=== PATIENT | female | born 1950 | race Caucasian/White ===

== ENCOUNTER 2018-07-22 12:51 | Emergency (ER) | payer MEDICARE, OTHER ==
[~2018-07-22] VITALS: Ht 167.6 cm; Wt 47.2 kg
--- NOTE | 2018-07-22 13:05 | NUR ---
THIS RN ASSISTED PT OUT OF HER TRUCK FROM [place]. PT TOLD THIS RN SHE WAS FEELING WEAK. WHEN ATTEMPT TO HELP PT OUT OF TRUCK, PT STATES THIS RN SHOULD BE CAREFUL WHEN TOUCHING HER. PT STATES THAT SHE DRINKS A VERY POWERFUL HOLY WATER FROM ANOTHER COUNTRY THAT COULD EFFECT THIS RN. PT GATHERED BELOGNINGS AND WATER FROM TRUCK AND ASSISTED INTO WHEELCHAIR. WHEN ATTEMPTING TO GO [facility] TO [facility], PT STATES SHE NEEDED TO RETURN BACK TO HER TRUCK TO GATHER MORE WATER. PT GOT BACK INTO TRUCK AND POURED LIQUID FROM ONE CONTAINER INTO ANOTHER AND RETURNED TO WHEELCHAIR AND CAME BACK INTO HOSPITAL. PT TOLD THIS RN THAT THE LORD TALKS TO HER AND SHE DOES HIS WORK.
[2018-07-22] MEDS ORDERED: NS IV 1000 ML 1,000 ML IV SCH (13:15)
--- NOTE | 2018-07-22 13:21 | ED General ---
General Stated Complaint: N/V Source of Information: Patient Exam Limitations: No Limitations History of Present Illness Date Seen by Provider: July 22, 2018 Time Seen by Provider: 13:17 Initial Comments To ER by private vehicle with reports of general weakness nausea and vomiting. His began earlier today. She states that in May of this year she left her home town of [place] in route to [place] to "do the Lords work" but cannot elaborate on what that is. She states that 2 weeks ago she was in [place] for one week in "a mental institution". She states that she's not been taking the prescribed medications since discharge 1 week ago because "it's not the Lords will". 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 She states that the Lord always provides for her, however she's been without food for 8 days. She denies any specific pains. Denies any shortness of breath. She states that she does not want to go back to a mental institution "unless the Lord wants her to". She brings with her a 1 gallon jug of water which she states is "holy water". She is neither suicidal nor homicidal. Timing/Duration: 1-2 Days Severity: Moderate Associated Systoms: Nausea/Vomiting Allergies and Home Medications Allergies Coded Allergies: No Known Drug Allergies (Unverified , 07/22/18) Patient Home Medication List Home Medication List Reviewed: Yes Review of Systems Review of Systems Constitutional: see HPI, weakness EENTM: see HPI Respiratory: no symptoms reported Cardiovascular: no symptoms reported Genitourinary: no symptoms reported Musculoskeletal: no symptoms reported Skin: no symptoms reported Psychiatric/Neurological: No Symptoms Reported Hematologic/Lymphatic: No Symptoms Reported Physical Exam Vital Signs Vital Signs - First Documented 07/22/18 13:05 Temp 97.4 Pulse 68 Resp 19 B/P (MAP) 130/72 (91) Pulse Ox 96 O2 Delivery Room Air Capillary Refill : Height, Weight, BMI Height: '" Weight: lbs. oz. kg; BMI Method: General Appearance: No Apparent Distress, WD/WN, Thin (frail) Eyes: Bilateral Eye Normal Inspection, Bilateral Eye PERRL, Bilateral Eye EOMI HEENT: PERRL/EOMI, TMs Normal Neck: Full Range of Motion, Normal Inspection Respiratory: No Accessory Muscle Use, No Respiratory Distress Gastrointestinal: Non Tender, Soft Extremity: Normal Capillary Refill, Normal Inspection Neurologic/Psychiatric: Alert, Oriented x3, Other (alert oriented cooperative. Keeps eyes closed when talking to me. Does not appear to have any hallucinations at this time. Believe she does have a baseline dementia.) Skin: Normal Color, Warm/Dry Comments Stated to RN that she can only eat white food because of the vibrations in other colored foods Progress/Results/Core Measures Suspected Sepsis SIRS Temperature: Pulse: Respiratory Rate: Laboratory Tests 07/22/18 13:11: White Blood Count 6.8 Blood Pressure / Mean: Laboratory Tests 07/22/18 13:11: Creatinine 0.82, Platelet Count 374, Total Bilirubin 0.6 Results/Orders Lab Results Laboratory Tests Test 07/22/18 13:11 07/22/18 14:47 Range/Units White Blood Count 6.8 4.3-11.0 10^3/uL Red Blood Count 4.02 L 4.35-5.85 10^6/uL Hemoglobin 11.4 L 11.5-16.0 G/DL Hematocrit 35 35-52 % Mean Corpuscular Volume 87 80-99 FL Mean Corpuscular Hemoglobin 28 25-34 PG Mean Corpuscular Hemoglobin Concent 33 32-36 G/DL Red Cell Distribution Width 15.9 H 10.0-14.5 % Platelet Count 374 130-400 10^3/uL Mean Platelet Volume 8.8 7.4-10.4 FL Neutrophils (%) (Auto) 82 H 42-75 % Lymphocytes (%) (Auto) 11 L 12-44 % Monocytes (%) (Auto) 7 0-12 % Eosinophils (%) (Auto) 0 0-10 % Basophils (%) (Auto) 0 0-10 % Neutrophils # (Auto) 5.6 1.8-7.8 X 10^3 Lymphocytes # (Auto) 0.8 L 1.0-4.0 X 10^3 Monocytes # (Auto) 0.5 0.0-1.0 X 10^3 Eosinophils # (Auto) 0.0 0.0-0.3 10^3/uL Basophils # (Auto) 0.0 0.0-0.1 10^3/uL Sodium Level 130 L 135-145 MMOL/L Potassium Level 4.1 3.6-5.0 MMOL/L Chloride Level 95 L 98-107 MMOL/L Carbon Dioxide Level 22 21-32 MMOL/L Anion Gap 13 5-14 MMOL/L Blood Urea Nitrogen 13 7-18 MG/DL Creatinine 0.82 0.60-1.30 MG/DL Estimat Glomerular Filtration Rate > 60 BUN/Creatinine Ratio 16 Glucose Level 115 H 70-105 MG/DL Calcium Level 9.5 8.5-10.1 MG/DL Corrected Calcium 9.3 8.5-10.1 MG/DL Magnesium Level 2.0 1.8-2.4 MG/DL Total Bilirubin 0.6 0.1-1.0 MG/DL Aspartate Amino Transf (AST/SGOT) 27 5-34 U/L Alanine Aminotransferase (ALT/SGPT) 35 0-55 U/L Alkaline Phosphatase 67 40-136 U/L Total Protein 7.5 6.4-8.2 GM/DL Albumin 4.3 3.2-4.5 GM/DL Thyroid Stimulating Hormone (TSH) 0.71 0.35-4.94 UIU/ML Free Thyroxine 1.17 0.70-1.48 NG/DL Salicylates Level < 5.0 L 5.0-20.0 MG/DL Acetaminophen Level < 10 L 10-30 UG/ML Serum Alcohol < 10 <10 MG/DL Urine Color YELLOW Urine Clarity CLEAR Urine pH 6 5-9 Urine Specific Fif[place] 1.015 L 1.016-1.022 Urine Protein NEGATIVE NEGATIVE Urine Glucose (UA) NEGATIVE NEGATIVE Urine Ketones 3+ H NEGATIVE Urine Nitrite NEGATIVE NEGATIVE Urine Bilirubin NEGATIVE NEGATIVE Urine Urobilinogen NORMAL NORMAL MG/DL Urine Leukocyte Esterase NEGATIVE NEGATIVE Urine RBC (Auto) 1+ H NEGATIVE Urine RBC NONE /HPF Urine WBC NONE /HPF Urine Squamous Epithelial Cells RARE /HPF Urine Crystals NONE /LPF Urine Bacteria NEGATIVE /HPF Urine Casts NONE /LPF Urine Mucus NEGATIVE /LPF Urine Culture Indicated NO Urine Opiates Screen NEGATIVE NEGATIVE Urine Oxycodone Screen NEGATIVE NEGATIVE Urine Methadone Screen NEGATIVE NEGATIVE Urine Propoxyphene Screen NEGATIVE NEGATIVE Urine Barbiturates Screen NEGATIVE NEGATIVE Ur Tricyclic Antidepressants Screen NEGATIVE NEGATIVE Urine Phencyclidine Screen NEGATIVE NEGATIVE Urine Amphetamines Screen NEGATIVE NEGATIVE Urine Methamphetamines Screen NEGATIVE NEGATIVE Urine Benzodiazepines Screen NEGATIVE NEGATIVE Urine Cocaine Screen NEGATIVE NEGATIVE Urine Cannabinoids Screen NEGATIVE NEGATIVE My Orders Orders - JEOVANY ALVES [employer]TELLIGENCE DEVELOPER Cbc With Automated Diff (07/22/18 13:14) Comprehensive Metabolic Panel (07/22/18 13:14) Syphilis Antibody Screen (07/22/18 13:14) Ua Culture If Indicated (07/22/18 13:14) Drug Screen Stat (Urine) (07/22/18 13:14) Ekg Tracing (07/22/18 13:14) Alcohol (07/22/18 13:14) Salicylate (07/22/18 13:14) Acetaminophen (07/22/18 13:14) Ed Iv/Invasive Line Start (07/22/18 13:14) Magnesium (07/22/18 13:14) Ns Iv 1000 Ml (Sodium Chloride 0.9%) (07/22/18 13:15) General/Regular (07/22/18 Lunch) Thyroid Stimulating Hormone (07/22/18 13:23) Free T4 (Free Thyroxine) (07/22/18 13:23) Vital Signs/I&O 07/22/18 13:05 Temp 97.4 Pulse 68 Resp 19 B/P (MAP) 130/72 (91) Pulse Ox 96 O2 Delivery Room Air Capillary Refill : Departure Communication (Admissions) 1340-spoke with [facility] [place]. Since the patient states that she would only go inpatient if it is the Lords Will, [place] [place] may not be the best place since we cannot force her involuntarily to admit her. They recommended we speak with [facility] in regards to possible involuntary placement at state facility. I'm also speaking with [place] [employer] to determine if she is a missing person, they state that no missing person report has been filed for this name/date of . 1419-Aaron Gloria here from [facility] here to evaluate pt. Dr holden has also seen the patient and agrees with plan of care. 1615-Aaron gloria has interviewed the patient and not found sufficient reason to involuntarily admit her to [facility]. Patient still states that she would be agreeable to go to [facility] unit if it is the Lords wish. I spoke with Emily Randhawa, she'll be out to evaluate the patient for possible placement there. 1844-Emily Randhawa here has screened patient. She feels the patient would qualify for admission at [facility] unit and the patient herself has signed agreeable to voluntary admission. I updated Dr. Steiner and she accepts the patient. We'll transport her over there using tracing normal secure psych transport. Impression Primary Impression: Delusional disorder Disposition: 01 HOME, SELF-CARE Condition: Stable JEOVANY ALVES APRN July 22, 2018 13:21
[2018-07-22 13:22] LABS: BASOPHILS % (AUTO) 0 % (0-10); EOSINOPHILS % (AUTO) 0 % (0-10); HEMATOCRIT 35 % (35-52); HEMOGLOBIN 11.4 G/DL (11.5-16.0); LYMPHOCYTES # (AUTO) 0.8 X 10^3 (1.0-4.0); LYMPHOCYTES % (AUTO) 11 % (12-44); MEAN CORPUSCULAR HEMOGLOBIN 28 PG (25-34); MEAN CORPUSCULAR HGB CONC 33 G/DL (32-36); MEAN CORPUSCULAR VOLUME 87 FL (80-99); MEAN PLATELET VOLUME 8.8 FL (7.4-10.4); MONOCYTES # (AUTO) 0.5 X 10^3 (0.0-1.0); MONOCYTES % (AUTO) 7 % (0-12); NEUTROPHILS # (AUTO) 5.6 X 10^3 (1.8-7.8); NEUTROPHILS % (AUTO) 82 % (42-75); PLATELET COUNT 374 10^3/uL (130-400); RED CELL DISTRIBUTION WIDTH 15.9 % (10.0-14.5); WHITE BLOOD COUNT 6.8 10^3/uL (4.3-11.0)
[2018-07-22 13:39] LABS: ALANINE AMINOTRANSFERASE 35 U/L (0-55); ALBUMIN 4.3 GM/DL (3.2-4.5); ALKALINE PHOSPHATASE 67 U/L (40-136); BILIRUBIN,TOTAL 0.6 MG/DL (0.1-1.0); BUN/CREATININE RATIO 16; CALCIUM 9.5 MG/DL (8.5-10.1); CARBON DIOXIDE 22 MMOL/L (21-32); CHLORIDE 95 MMOL/L (98-107); CREATININE SERUM 0.82 MG/DL (0.60-1.30); GFR ESTIMATED > 60; GLUCOSE 115 MG/DL (70-105); POTASSIUM 4.1 MMOL/L (3.6-5.0); SALICYLATE < 5.0 MG/DL (5.0-20.0); SODIUM 130 MMOL/L (135-145); TOTAL PROTEIN 7.5 GM/DL (6.4-8.2)
[2018-07-22 13:46] LABS: ACETAMINOPHEN < 10 UG/ML (10-30)
[2018-07-22 14:17] LABS: FREE T4 (FREE THYROXINE) 1.17 NG/DL (0.70-1.48)
--- NOTE | 2018-07-22 14:39 | NUR ---
Family Services Worker Referral: Upon entering the room, pt was ordering a vegetarian meal consisting of 'white (colored) foods.' Pt said she did not want to be touched, stating she drinks holy water every day and this can have adverse effects on others who touch her. Pt had a gallon of water with her, which she said was holy water. Pt permitted certain nurses to physically tend to her needs. She shared that she lives in [facility] in the winter and has been traveling from there since May. She said she goes wherever God tells her to go, that she can hear him talking to her all the time. Pt also said she sees and hears her grandparents and other family members. Pt said God told her to go to the hospital today, which shocked her since she 'relies upon God and does go to hospitals.' She shared about being in a behavioral health unit recently, but did not give the location or name. She described involuntary admission. In our visit she asked if I could tell the person who ordered her food that 'God wanted her to have some meat, like turkey and cheese.'
[2018-07-22 14:55] LABS: BILIRUBIN,URINE NEGATIVE (NEGATIVE); CLARITY,URINE CLEAR; COLOR,URINE YELLOW; GLUCOSE, URINE (UA) NEGATIVE (NEGATIVE); KETONES,URINE 3+ (NEGATIVE); LEUKOCYTE ESTERASE ,URINE NEGATIVE (NEGATIVE); NITRITE,URINE NEGATIVE (NEGATIVE); PH,URINE 6 (5-9); PROTEIN,URINE NEGATIVE (NEGATIVE); UROBILINOGEN,URINE NORMAL (NORMAL)
[2018-07-22 15:07] LABS: AMPHETAMINE SCREEN, URINE NEGATIVE (NEGATIVE); BARBITURATE SCREEN URINE NEGATIVE (NEGATIVE); BENZODIAZEPINES SCREEN URINE NEGATIVE (NEGATIVE); CANNABINOID SCREEN, URINE NEGATIVE (NEGATIVE); COCAINE SCREEN URINE NEGATIVE (NEGATIVE); METHADONE STAT NEGATIVE (NEGATIVE); METHAMPHETAMINE SCREEN URINE S NEGATIVE (NEGATIVE); OPIATE SCREEN URINE NEGATIVE (NEGATIVE); OXYCODONE STAT NEGATIVE (NEGATIVE); PROPOXYPHENE STAT NEGATIVE (NEGATIVE); TRICYCLIC ANTIDEPRESSANTS SCRE NEGATIVE (NEGATIVE)
[2018-07-22 15:25] LABS: BACTERIA,URINE NEGATIVE /HPF; SQUAMOUS EPITHELIAL CELL,UR RARE /HPF
[2018-07-22] MEDS ORDERED: LORazepam INJ 2 MG/ML (ATIVAN) VIAL IVP PRN (19:00)
[2018-07-22 19:35] VITALS: BP 104/57
== END 2018-07-22 19:35 ==
LOC: ER 12:54
DX: F22 Delusional disorders (principal)
CPT/HCPCS: 36415; 80053; 80306; 80320; 80329; 81000; 83735; 84439; 84443; 85025; 86780; 93005; 96361; 96374

== ENCOUNTER 2018-08-18 21:48 | Emergency (ER) | payer MEDICARE ==
[~2018-08-18] VITALS: Ht 167.6 cm; Wt 59.0 kg
[2018-08-18] MEDS ORDERED: LACTATED RINGERS 1,000 ML IV ONE (21:50)
--- OUTSIDE RECORDS SUMMARY | 2018-08-18 21:52 | XMS REPORT | Continuity of Care Document ---
Author Organization Unknown Address Unknown Allergies Active Description Code Type Severity Reaction Onset Reported/Identified Relationship to Patient Clinical Status Yes No Known Drug Allergies [id number] Drug Allergy Unknown N/A 07/22/2018 Medications There is no data. Problems Date Dx Coded Attending Type Code Diagnosis Diagnosed By 07/24/2018 JEOVANY ALVES APRN Ot F22 DELUSIONAL DISORDERS 07/24/2018 JEOVANY ALVES APRN Ot R53.1 WEAKNESS Procedures There is no data. Results Test Result Range Complete blood count (CBC) with automated white blood cell (WBC) differential - 07/22/18 13:11 Blood leukocytes automated count (number/volume) 6.8 10*3/uL 4.3-11.0 Blood erythrocytes automated count (number/volume) 4.02 10*6/uL 4.35-5.85 Venous blood hemoglobin measurement (mass/volume) 11.4 g/dL 11.5-16.0 Blood hematocrit (volume fraction) 35 % 35-52 Automated erythrocyte mean corpuscular volume 87 [foz_us] 80-99 Automated erythrocyte mean corpuscular hemoglobin (mass per erythrocyte) 28 pg 25-34 Automated erythrocyte mean corpuscular hemoglobin concentration measurement (mass/volume) 33 g/dL 32-36 Automated erythrocyte distribution width ratio 15.9 % 10.0- 14.5 Automated blood platelet count (count/volume) 374 10*3/uL 130-400 Automated blood platelet mean volume measurement 8.8 [foz_us] 7.4-10.4 Automated blood neutrophils/100 leukocytes 82 % 42-75 Automated blood lymphocytes/100 leukocytes 11 % 12-44 Blood monocytes/100 leukocytes 7 % 0-12 Automated blood eosinophils/100 leukocytes 0 % 0-10 Automated blood basophils/100 leukocytes 0 % 0-10 Blood neutrophils automated count (number/volume) 5.6 10*3 1.8-7.8 Blood lymphocytes automated count (number/volume) 0.8 10*3 1.0-4.0 Blood monocytes automated count (number/volume) 0.5 10*3 0.0- 1.0 Automated eosinophil count 0.0 10*3/uL 0.0-0.3 Automated blood basophil count (count/volume) 0.0 10*3/uL 0.0-0.1 Comprehensive metabolic panel - 07/22/18 13:11 Serum or plasma sodium measurement (moles/volume) 130 mmol/L 135-145 Serum or plasma potassium measurement (moles/volume) 4.1 mmol/L 3.6-5.0 Serum or plasma chloride measurement (moles/volume) 95 mmol/L 98-107 Carbon dioxide 22 mmol/L 21-32 Serum or plasma anion gap determination (moles/volume) 13 mmol/L 5-14 Serum or plasma urea nitrogen measurement (mass/volume) 13 mg/dL 7-18 Serum or plasma creatinine measurement (mass/volume) 0.82 mg/dL 0.60-1.30 Serum or plasma urea nitrogen/creatinine mass ratio 16 NRG Serum or plasma creatinine measurement with calculation of estimated glomerular filtration rate > NRG Serum or plasma glucose measurement (mass/volume) 115 mg/dL 70-105 Serum or plasma calcium measurement (mass/volume) 9.5 mg/dL 8.5-10.1 Serum or plasma total bilirubin measurement (mass/volume) 0.6 mg/dL 0.1-1.0 Serum or plasma alkaline phosphatase measurement (enzymatic activity/volume) 67 U/L 40-136 Serum or plasma aspartate aminotransferase measurement (enzymatic activity/volume) 27 U/L 5-34 Serum or plasma alanine aminotransferase measurement (enzymatic activity/volume) 35 U/L 0-55 Serum or plasma protein measurement (mass/volume) 7.5 g/dL 6.4-8.2 Serum or plasma albumin measurement (mass/volume) 4.3 g/dL 3.2-4.5 CALCIUM CORRECTED 9.3 mg/dL 8.5-10.1 Magnesium - 07/22/18 13:11 Magnesium 2.0 mg/dL 1.8-2.4 Serum or plasma salicylates measurement (mass/volume) - 07/22/18 13:11 Serum or plasma salicylates measurement (mass/volume) < mg/dL 5.0-20.0 Serum or plasma acetaminophen measurement (mass/volume) - 07/22/18 13:11 Serum or plasma acetaminophen measurement (mass/volume) < ug/mL 10-30 Serum or plasma ethanol measurement (mass/volume) - 07/22/18 13:11 Serum or plasma ethanol measurement (mass/volume) < mg/dL <10 THYROID STIMULATING HORMONE - 07/22/18 13:11 THYROID STIMULATING HORMONE 0.71 u[iU]/mL 0.35-4.94 Serum or plasma thyroxine (T4) free measurement (mass/volume) - 07/22/18 13:11 Serum or plasma thyroxine (T4) free measurement (mass/volume) 1.17 ng/dL 0.70-1.48 Serum reagin antibody assay (units/volume) by RPR - 07/22/18 13:11 Serum reagin antibody assay (units/volume) by RPR Non-Reactive Non-Reactive Urine drug screening test - 07/22/18 14:47 Urine phencyclidine detection by screening method NEGATIVE NEGATIVE Urine benzodiazepines detection by screening method NEGATIVE NEGATIVE Urine cocaine detection NEGATIVE NEGATIVE Urine amphetamines detection by screening method NEGATIVE NEGATIVE Urine methamphetamine detection by screening method NEGATIVE NEGATIVE Urine cannabinoids detection by screening method NEGATIVE NEGATIVE Urine opiates detection by screening method NEGATIVE NEGATIVE Urine barbiturates detection NEGATIVE NEGATIVE Screening urine tricyclic antidepressants detection NEGATIVE NEGATIVE Urine methadone detection by screening method NEGATIVE NEGATIVE Urine oxycodone detection NEGATIVE NEGATIVE Urine propoxyphene detection NEGATIVE NEGATIVE Complete urinalysis with reflex to culture - 07/22/18 14:47 Urine color determination YELLOW NRG Urine clarity determination CLEAR NRG Urine pH measurement by test strip 6 5-9 Specific gravity of urine by test strip 1.015 1.016-1.022 Urine protein assay by test strip, semi-quantitative NEGATIVE NEGATIVE Urine glucose detection by automated test strip NEGATIVE NEGATIVE Erythrocytes detection in urine sediment by light microscopy 1+ NEGATIVE Urine ketones detection by automated test strip 3+ NEGATIVE Urine nitrite detection by test strip NEGATIVE NEGATIVE Urine total bilirubin detection by test strip NEGATIVE NEGATIVE Urine urobilinogen measurement by automated test strip (mass/volume) NORMAL NORMAL Urine leukocyte esterase detection by dipstick NEGATIVE NEGATIVE Automated urine sediment erythrocyte count by microscopy (number/high power field) NONE NRG Automated urine sediment leukocyte count by microscopy (number/high power field) NONE NRG Bacteria detection in urine sediment by light microscopy NEGATIVE NRG Squamous epithelial cells detection in urine sediment by light microscopy RARE NRG Crystals detection in urine sediment by light microscopy NONE NRG Casts detection in urine sediment by light microscopy NONE NRG Mucus detection in urine sediment by light microscopy NEGATIVE NRG Complete urinalysis with reflex to culture NO NRG Encounters ACCT No. Visit Date/Time Discharge Status Pt. Type Provider Facility Loc./Unit Complaint [id number] 07/22/2018 12:54:00 07/22/2018 19:35:00 DIS Outpatient JEOVANY ALVES APRN [facility] ER N/V [id number] 08/18/2018 21:49:00 ACT Emergency GAB FELTON DO [facility] ER NOT EATEN FOR SEVERAL DAYS
[2018-08-18 22:01] LABS: BILIRUBIN,URINE NEGATIVE (NEGATIVE); CLARITY,URINE CLEAR; COLOR,URINE YELLOW; GLUCOSE, URINE (UA) NEGATIVE (NEGATIVE); KETONES,URINE NEGATIVE (NEGATIVE); LEUKOCYTE ESTERASE ,URINE NEGATIVE (NEGATIVE); NITRITE,URINE NEGATIVE (NEGATIVE); PH,URINE 6 (5-9); PROTEIN,URINE NEGATIVE (NEGATIVE); UROBILINOGEN,URINE NORMAL (NORMAL)
--- NOTE | 2018-08-18 22:03 | ED General ---
General Chief Complaint: Psych/Social Disorder Stated Complaint: NOT EATEN FOR SEVERAL DAYS Source of Information: Patient (LIMITED, VAGUE HISTORIAN WITH ERRATIC SPEECH), EMS, Old Records History of Present Illness Date Seen by Provider: Aug 18, 2018 Time Seen by Provider: 21:45 Initial Comments PT ARRIVES VIA EMS PT [facility] WHERE PT HAS BEEN LIVING IN HER TRUCK FOR THE PAST FEW WEEKS--EMS REPORTS THAT [facility] THEM "BECAUSE PT HAD BEEN PARKED THERE ALL DAY" PT REPORTED TO EMS THAT SHE HAS NOT EATEN FOR 6-7-8 DAYS PT WANTING TO VOID SHE IS BEING WHEELED INTO ER AND WANTING SOMETHING TO DRINK SHE IS BEING WHEELED INTO ER. ON ARRIVAL TO ER, WHEN ASKED WHY SHE IS HERE OR WHAT KIND OF PROBLEMS SHE IS HAVING, HER REPLY IS: "THINGS ARE TOTALLY DIFFERENT" "I WENT INTO [email or web address] [facility]" "AND PEOPLE ARE DOING THINGS" "I'M SEEING FAR MORE THAN I USUALLY DO" "I'M GETTING WEAKER" "IT'S FRIGHTENING" PT STATES SHE HAS NOT EATEN FOR 6-7-8 DAYS , STATING SHE IS "WAITING FOR GOD TO TALK TO HER" AND "TELL HER TO EAT" STATES "I WANT TO WALK" "GOD IMPRESSED IT UPON ME TO WALK BUT I'M NOT WALKING BECAUSE I'M NOT FEELING THAT STRONG" STATES SHE HAS NOT EATEN SINCE "LAST SATURDAY" STATES "I HEAR THE LORD SPEAK TO ME" "FINALLY HE TOLD ME TO EAT TODAY" STATES SHE WENT TO [facility] AND ATE 2 CHICKEN SANDWICHES AND HAD LETTUCE--"BUT THE LETTUCE WASN'T ANY GOOD, SO I WENT TO [facility] AND GOT LETTUCE" STATES SHE ALSO HAS BEEN DRINKING CHOCOLATE MILK AND HAS BEEN DRINKING WATER TODAY PT WALKED TO [facility] ( WHICH IS IN [place] [facility] ) AND WALKED TO [facility] ( WHICH IS [facility]JAC[facility] TO [employer]) TODAY. 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" --DOES NOT ELABORATE ANY FURTHER PT STATES SHE HAS COME FROM [place] AND IS ON HER WAY TO [place], BUT STATES "NO SPECIFIC TIME" FOR BEING IN [place] SHE STATES SHE DOES NOT HAVE ANY FAMILY WHEN ASKED HOW SHE GETS MONEY FOR FOOD OR GAS, SHE STATES SHE GETS A SOCIAL SECURITY CHECK WHEN ASKED HOW THEY KNOW WHERE TO SEND IT, SHE STATES THEY SEND IT TO "[facility]" "AND THEY GIVE ME A DEBIT CARD" PT WAS HERE 07/22/18 FOR THIS EXACT SAME ISSUE--PT WITH MORMONISM FIXATION PT WAS ADMITTED TO [facility] AT THAT TIME PT HAS ALSO BEEN IN A PSYCHIATRIC FACILITY IN [place] AT SOME TIME WELL. HER PSYCH HISTORY BEYOND THAT IS NOT KNOWN. Allergies and Home Medications Allergies Coded Allergies: No Known Drug Allergies (Unverified , 07/22/18) Patient Home Medication List Home Medication List Reviewed: Yes Review of Systems Review of Systems Constitutional: weakness (SEE HPI--PT HAS BEEN AMBULATORY TODAY) Respiratory: no symptoms reported Cardiovascular: no symptoms reported Gastrointestinal: no symptoms reported; No abdominal pain, No diarrhea, No nausea, No vomiting Genitourinary: no symptoms reported; No decreased output Musculoskeletal: no symptoms reported Skin: no symptoms reported Psychiatric/Neurological: See HPI Past Bvlweow-Ypamuj-Ewuhqs Hx Patient Social History Alcohol Use: Denies Use Recreational Drug Use: No Smoking Status: Never a Smoker Recent Foreign Travel: No Contact w/Someone Who Travel: No Recent Hopitalizations: No Immunizations Up To Date Tetanus Booster (TDap): Unknown Seasonal Allergies Seasonal Allergies: No Past Medical History Surgeries: Yes Hysterectomy, Tonsillectomy Respiratory: No Cardiac: No 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 oz. 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 NO SUICIDAL OR HOMICIDAL THOUGHTS. ) Skin: Normal Color, Warm/Dry Progress/Results/Core Measures Suspected Sepsis SIRS Temperature: Pulse: Respiratory Rate: Laboratory Tests 08/18/18 21:54: White Blood Count 8.6 Blood Pressure / Mean: Laboratory Tests 08/18/18 21:54: Creatinine 0.90, INR Comment 1.0, Platelet Count 313, Total Bilirubin 0.5 Results/Orders Lab Results Laboratory Tests Test 08/18/18 21:53 08/18/18 21:54 Range/Units Urine Color YELLOW Urine Clarity CLEAR Urine pH 6 5-9 Urine Specific [place] 1.010 L 1.016-1.022 Urine Protein NEGATIVE NEGATIVE Urine Glucose (UA) NEGATIVE NEGATIVE Urine Ketones NEGATIVE NEGATIVE Urine Nitrite NEGATIVE NEGATIVE Urine Bilirubin NEGATIVE NEGATIVE Urine Urobilinogen NORMAL NORMAL MG/DL Urine Leukocyte Esterase NEGATIVE NEGATIVE Urine RBC (Auto) NEGATIVE NEGATIVE Urine RBC NONE /HPF Urine WBC NONE /HPF Urine Squamous Epithelial Cells RARE /HPF Urine Crystals NONE /LPF Urine Bacteria NEGATIVE /HPF Urine Casts NONE /LPF Urine Mucus NEGATIVE /LPF Urine Culture Indicated NO Urine Opiates Screen NEGATIVE NEGATIVE Urine Oxycodone Screen NEGATIVE NEGATIVE Urine Methadone Screen NEGATIVE NEGATIVE Urine Propoxyphene Screen NEGATIVE NEGATIVE Urine Barbiturates Screen NEGATIVE NEGATIVE Ur Tricyclic Antidepressants Screen NEGATIVE NEGATIVE Urine Phencyclidine Screen NEGATIVE NEGATIVE Urine Amphetamines Screen NEGATIVE NEGATIVE Urine Methamphetamines Screen NEGATIVE NEGATIVE Urine Benzodiazepines Screen NEGATIVE NEGATIVE Urine Cocaine Screen NEGATIVE NEGATIVE Urine Cannabinoids Screen NEGATIVE NEGATIVE White Blood Count 8.6 4.3-11.0 10^3/uL Red Blood Count 3.91 L 4.35-5.85 10^6/uL Hemoglobin 11.3 L 11.5-16.0 G/DL Hematocrit 35 35-52 % Mean Corpuscular Volume 89 80-99 FL Mean Corpuscular Hemoglobin 29 25-34 PG Mean Corpuscular Hemoglobin Concent 33 32-36 G/DL Red Cell Distribution Width 15.9 H 10.0-14.5 % Platelet Count 313 130-400 10^3/uL Mean Platelet Volume 9.6 7.4-10.4 FL Neutrophils (%) (Auto) 73 42-75 % Lymphocytes (%) (Auto) 17 12-44 % Monocytes (%) (Auto) 9 0-12 % Eosinophils (%) (Auto) 1 0-10 % Basophils (%) (Auto) 0 0-10 % Neutrophils # (Auto) 6.3 1.8-7.8 X 10^3 Lymphocytes # (Auto) 1.5 1.0-4.0 X 10^3 Monocytes # (Auto) 0.8 0.0-1.0 X 10^3 Eosinophils # (Auto) 0.1 0.0-0.3 10^3/uL Basophils # (Auto) 0.0 0.0-0.1 10^3/uL Prothrombin Time 13.2 12.2-14.7 SEC INR Comment 1.0 0.8-1.4 Activated Partial Thromboplast Time 31 24-35 SEC Sodium Level 136 135-145 MMOL/L Potassium Level 4.1 3.6-5.0 MMOL/L Chloride Level 98 98-107 MMOL/L Carbon Dioxide Level 25 21-32 MMOL/L Anion Gap 13 5-14 MMOL/L Blood Urea Nitrogen 16 7-18 MG/DL Creatinine 0.90 0.60-1.30 MG/DL Estimat Glomerular Filtration Rate > 60 BUN/Creatinine Ratio 18 Glucose Level 86 70-105 MG/DL Calcium Level 9.5 8.5-10.1 MG/DL Corrected Calcium 9.4 8.5-10.1 MG/DL Magnesium Level 2.3 1.8-2.4 MG/DL Total Bilirubin 0.5 0.1-1.0 MG/DL Aspartate Amino Transf (AST/SGOT) 24 5-34 U/L Alanine Aminotransferase (ALT/SGPT) 20 0-55 U/L Alkaline Phosphatase 71 40-136 U/L Ammonia 20 11-32 UMOL/L Total Creatine Kinase 94 29-168 U/L Creatine Kinase MB 4.0 <6.6 NG/ML Myoglobin 75.5 10.0-92.0 NG/ML Troponin I < 0.028 <0.028 NG/ML Total Protein 7.0 6.4-8.2 GM/DL Albumin 4.1 3.2-4.5 GM/DL Amylase Level 192 H 25-125 U/L TSH [place] Testing 0.64 0.35-4.94 UIU/ML Acetaminophen Level < 10 L 10-30 UG/ML Serum Alcohol < 10 <10 MG/DL My Orders Orders - GAB FELTON DO Ed Iv/Invasive Line Start (08/18/18 21:50) Ekg Tracing (08/18/18 21:50) Monitor-Rhythm Ecg Trace Only (08/18/18 21:50) Chest 1 View, Ap/Pa Only (08/18/18 21:50) Ct Head Wo (08/18/18 21:50) Acetaminophen (08/18/18 21:50) Alcohol (08/18/18 21:50) Ammonia (08/18/18 21:50) Amylase (08/18/18 21:50) Cbc With Automated Diff (08/18/18 21:50) Comprehensive Metabolic Panel (08/18/18 21:50) Creatine Kinase (08/18/18 21:50) Creatine Kinase Mb (08/18/18 21:50) Drug Screen Stat (Urine) (08/18/18 21:50) Magnesium (08/18/18 21:50) Protime With Inr (08/18/18 21:50) Partial Thromboplastin Time (08/18/18 21:50) Thyroid Analyzer (08/18/18 21:50) Troponin I (08/18/18 21:50) Ua Culture If Indicated (08/18/18 21:50) Myoglobin Serum (08/18/18 21:50) Ed Iv/Invasive Line Start (08/18/18 21:50) Lactated Ringers (Lr 1000 Ml Iv Solution (08/18/18 21:50) Medications Given in ED Current Medications Medications Dose Ordered Sig/Marianne Route Start Time Stop Time Status Last Admin Dose Admin Lactated Ringer's 1,000 ml @ 0 mls/hr Q0M ONCE IV 08/18/18 21:50 08/18/18 21:53 DC 08/18/18 22:14 0 MLS/HR Vital Signs/I&O 08/18/18 08/18/18 22:02 23:30 Temp 98.0 98.0 Pulse 77 77 Resp 18 18 B/P (MAP) 123/63 (83) 106/60 (75) Pulse Ox 98 98 O2 Delivery Room Air Capillary Refill : Progress Note : Progress Note ON ARRIVAL, PT BECOMES HYSTERICAL WHEN STAFF APPROACH HER WITHOUT GLOVES--STATING THEY HAVE "GERMS" ALSO HAS A "METAL PHOBIA" --YET DOES NOT APPEAR TO BE BOTHERED BY METAL RAILING ON ER CART PT BECOMES HYSTERICAL WHEN STAFF MEMBER ATTEMPTS TO GIVE HER A BLANKET ( AT PT'S REQUEST) AND STAFF MEMBER DID NOT HAVE GLOVES ON, YET ALLOWS XRAY STAFF MEMBER TO GIVE HER THE SAME BLANKET WHILE NOT WEARING GLOVES, BECAUSE PT "LIKED" STAFF MEMBER'S SILVER CROSS NECKLACE. OTHERWISE AN UNEVENTFUL ER STAY, AND PT HAD NO COMPLAINTS FOR REMAINDER OF ER STAY PT AMBULATES WITHOUT DIFFICULTY AT DISMISSAL ECG Initial ECG Impression Date: Aug 18, 2018 Initial ECG Impression Time: 22:06 Initial ECG Rate: 74 Initial ECG Rhythm: Normal Sinus Initial ECG Impression: Nonspecific Changes Diagnostic Imaging Comments CT HEAD--NO ACUTE PROCESS, PER [facility] VIA FAX @ 2419 CXR--NO ACUTE PROCESS, PENDING RADIOLOGIST REVIEW Reviewed: Reviewed by Me Departure Communication (Admissions) [id number]--CALLED [facility]. STAFF FAMILIAR WITH PT. THEY REPORT THAT PT HAS BEEN TO THEIR FACILITY 08/08 THEN LEFT 08/09/18, AFTER HER S.S. CHECK CAME IN , AND PT REFUSED TO TAKE MEDICATIONS [id number]--SPOKE WITH ANNETTE, MENTAL HEALTH SCREENER AT [facility]. SHE IS VERY FAMILIAR WITH PT FROM HER RECENT VISITS THERE, AND PT'S BEHAVIOR IS A CHRONIC ONE, AND PT IS NOT SUICIDAL OR HOMICIDAL. SHE WILL NOT BE COMING TONIGHT TO DO A SCREEN ON PT, AND STATES SHE DOES NOT MEET CRITERIA FOR ADMIT. "BUT WILL DO A SCREEN ON HER TOMORROW IF SHE IS STILL THERE " SHE REPORTS THAT PT HAS LIVED IN HER TRUCK FOR YEARS, AND PT LIKES TO "LIVE" IN [employer] [facility], OR [facility]" --SHE LIKES THEM BECAUSE THEY CAN USUALLY BE FOUND ALONG THE INTERSTATE AND PT HAS STATED THAT BECAUSE THEY ARE NAMED "[facility]" THAT THEY MUST BE A GOOD PLACE TO STAY. 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 SHE REPORTS THAT THEY WERE ABLE TO CONTACT A RELATIVE, BUT THEY REALLY DO NOT HAVE ANY CONTACT WITH PT, BUT THIS BEHAVIOR IS PT'S NORMAL BASELINE FOR MANY YEARS. SHE GIVES SAME INFORMATION THAT PT GETS HER SOCIAL SECURITY CHECKS DEPOSITED AND SHE HAS A DEBIT CARD. PT ALSO REPORTED TO THEM THAT SHE WAS LEAVING THE AREA AND MOVING ON TO ANOTHER TOWN. Impression Primary Impression: CHRONIC DELUSIONAL DISORDER Disposition: 01 HOME, SELF-CARE Condition: Stable Departure-Patient Inst. Referrals: NO,LOCAL PHYSICIAN (PCP/Family) Primary Care Physician Patient Instructions: Diet and Health Add. Discharge Instructions: EAT REGULAR MEALS EVERY DAY AND DRINK ENOUGH LIQUIDS SO THAT YOU ARE URINATING 3-4 TIMES A DAY OR MORE GO TO [facility] IF SYMPTOMS WORSEN All discharge instructions reviewed with patient and/or family. Voiced understanding. GAB FELTON DO Aug 18, 2018 22:03
[2018-08-18 22:04] LABS: BASOPHILS % (AUTO) 0 % (0-10); EOSINOPHILS # (AUTO) 0.1 10^3/uL (0.0-0.3); EOSINOPHILS % (AUTO) 1 % (0-10); HEMATOCRIT 35 % (35-52); HEMOGLOBIN 11.3 G/DL (11.5-16.0); LYMPHOCYTES # (AUTO) 1.5 X 10^3 (1.0-4.0); LYMPHOCYTES % (AUTO) 17 % (12-44); MEAN CORPUSCULAR HEMOGLOBIN 29 PG (25-34); MEAN CORPUSCULAR HGB CONC 33 G/DL (32-36); MEAN CORPUSCULAR VOLUME 89 FL (80-99); MEAN PLATELET VOLUME 9.6 FL (7.4-10.4); MONOCYTES # (AUTO) 0.8 X 10^3 (0.0-1.0); MONOCYTES % (AUTO) 9 % (0-12); NEUTROPHILS # (AUTO) 6.3 X 10^3 (1.8-7.8); NEUTROPHILS % (AUTO) 73 % (42-75); PLATELET COUNT 313 10^3/uL (130-400); RED CELL DISTRIBUTION WIDTH 15.9 % (10.0-14.5); WHITE BLOOD COUNT 8.6 10^3/uL (4.3-11.0)
[2018-08-18 22:06] LABS: BACTERIA,URINE NEGATIVE /HPF; SQUAMOUS EPITHELIAL CELL,UR RARE /HPF
[2018-08-18 22:11] LABS: AMPHETAMINE SCREEN, URINE NEGATIVE (NEGATIVE); BENZODIAZEPINES SCREEN URINE NEGATIVE (NEGATIVE); COCAINE SCREEN URINE NEGATIVE (NEGATIVE); METHAMPHETAMINE SCREEN URINE S NEGATIVE (NEGATIVE)
[2018-08-18 22:12] LABS: BARBITURATE SCREEN URINE NEGATIVE (NEGATIVE); CANNABINOID SCREEN, URINE NEGATIVE (NEGATIVE); METHADONE STAT NEGATIVE (NEGATIVE); OPIATE SCREEN URINE NEGATIVE (NEGATIVE); OXYCODONE STAT NEGATIVE (NEGATIVE); PROPOXYPHENE STAT NEGATIVE (NEGATIVE); TRICYCLIC ANTIDEPRESSANTS SCRE NEGATIVE (NEGATIVE)
[2018-08-18 22:14] LABS: PROTHROMBIN TIME PATIENT 13.2 SEC (12.2-14.7)
[2018-08-18 22:22] LABS: ALANINE AMINOTRANSFERASE 20 U/L (0-55); ALBUMIN 4.1 GM/DL (3.2-4.5); ALKALINE PHOSPHATASE 71 U/L (40-136); AMMONIA 20 UMOL/L (11-32); AMYLASE 192 U/L (25-125); BILIRUBIN,TOTAL 0.5 MG/DL (0.1-1.0); BUN/CREATININE RATIO 18; CALCIUM 9.5 MG/DL (8.5-10.1); CARBON DIOXIDE 25 MMOL/L (21-32); CHLORIDE 98 MMOL/L (98-107); CREATINE KINASE 94 U/L (29-168); GFR ESTIMATED > 60; GLUCOSE 86 MG/DL (70-105); MAGNESIUM 2.3 MG/DL (1.8-2.4); POTASSIUM 4.1 MMOL/L (3.6-5.0); SODIUM 136 MMOL/L (135-145)
[2018-08-18 22:24] LABS: ACETAMINOPHEN < 10 UG/ML (10-30)
[2018-08-18 22:41] LABS: TSH (THYROID ANALYZER) 0.64 UIU/ML (0.35-4.94)
[2018-08-18 23:30] VITALS: BP 106/60
--- NOTE | 2018-08-19 06:33 | Diagnostic Imaging Report ---
INDICATION: Weakness after fasting for islam reasons. FINDINGS: Frontal view of the chest demonstrates borderline cardiomegaly with calcification of the mitral valve annulus. Lungs are clear. The vascularity is normal. There are no pleural effusions. IMPRESSION: There is borderline cardiomegaly with calcification of the mitral valve annulus. Dictated by: Dictated on workstation # [id number]
--- NOTE | 2018-08-19 06:45 | Diagnostic Imaging Report ---
PROCEDURE: CT head without contrast. TECHNIQUE: Multiple contiguous axial images were obtained through the brain without the use of intravenous contrast. Auto Exposure Controls were utilized during the CT exam to meet ALARA standards for radiation dose reduction. INDICATION: Weakness after fasting. FINDINGS: Noncontrast CT scan of the head demonstrates no mass effect, midline shift, hemorrhage or extra-axial fluid collections. Ortiz-white matter differentiation is normal. Ventricles, cortical sulci and basilar cisterns are normal. The osseous structures appear normal. IMPRESSION: Normal CT scan of the head. Findings agree with [facility] report. Dictated by: Dictated on workstation # [id number]
== END 2018-08-18 23:32 | disposition home or self-care (01) ==
LOC: EDUNIT# 21:48 → ER 21:49
DX: F22 Delusional disorders (principal); Z90.710 Acquired absence of both cervix and uterus; Z90.89 Acquired absence of other organs
CPT/HCPCS: 36415; 70450; 71045; 80053; 80306; 80320; 80329; 81000; 82140; 82150; 82550; 82553; 83735; 83874; 84443; 84484; 85025; 85610; 85730; 93005; 93041; 96360